=== PATIENT | male | born 1995 | race Native Hawaiian/Other Pacific Islander ===

== ENCOUNTER 2017-09-05 12:48 | Emergency (ER) | payer SELFPAY ==
[~2017-09-05] VITALS: Ht 188 cm; Wt 119.0 kg
[2017-09-05 12:58] VITALS: BP 157/74; PULSE 120; RESP 16; TEMP 99.6; O2SAT 94
[2017-09-05] MEDS ORDERED: PHENERGAN W CODEIN PO (13:33)
[2017-09-05] MEDS ORDERED: OSEL75 PO (13:33)
--- NOTE | 2017-09-05 13:33 | PD ---
HPI Chief Complaint: Cold / Flu Symptoms Time Seen by Provider: 13:29 Travel History International Travel<30 days: No Contact w/Intl Traveler<30days: No Traveled to known affect area: No History of Present Illness HPI 22-year-old male complains of headache, congestion, coughing, body ache, fever. Patient states the symptoms started yesterday. Patient states the cough is intermittent and nonproductive. Patient denies any nausea vomiting diarrhea. Patient states that the fever up to 100.5 at home. Patient states the headache is aching headache a few soda head. Patient denies any visual change. Patient denies any neck pain. Patient states that he has used congestion and mild sore throat. PFSH Past Medical History Medical History: Denies Significant Hx Diminished Hearing: No Influenza Vaccination: No ?: Not Past Surgical History Surgical History: No Previous Surgery Social History Alcohol Use: No Tobacco Use: No Allergies-Medications (Allergen,Severity, Reaction): Coded Allergies: No Known Allergies (Unverified , 09/05/17) Reported Meds & Prescriptions Reported Meds & Active Scripts Active No Active Prescriptions or Reported Medications Review of Systems General / Constitutional: Positive: Fever Eyes: No: Visual changes HENT: Positive: Headaches, Sore Throat, Congestion Cardiovascular: No: Chest Pain or Discomfort Respiratory: Positive: Cough, No: Shortness of Breath Gastrointestinal: No: Abdominal Pain Genitourinary: No: Dysuria Musculoskeletal: No: Pain Skin: No Rash Neurologic: No: Weakness Psychiatric: No: Depression Endocrine: No: Polydipsia Hematologic/Lymphatic: No: Easy Bruising Physical Exam Narrative GENERAL: Well-nourished, well-developed patient. SKIN: Focused skin assessment warm/dry. HEAD: Normocephalic. EYES: No scleral icterus. No injection or drainage. TM: Clear. Throat: Mild erythematous. NECK: Supple, trachea midline. No JVD or lymphadenopathy. No meningismus CARDIOVASCULAR: Regular rate and rhythm without murmurs, gallops, or rubs. RESPIRATORY: Breath sounds equal bilaterally. No accessory muscle use. GASTROINTESTINAL: Abdomen soft, non-tender, nondistended. MUSCULOSKELETAL: No cyanosis, or edema. BACK: Nontender without obvious deformity. No CVA tenderness. Neurologic exam normal. Data Data Last Documented VS Vital Signs Date Time Temp Pulse Resp B/P (MAP) Pulse Ox O2 Delivery O2 Flow Rate FiO2 2/11/18 12:58 99.6 120 16 157/74 (465) 94 MDM Medical Decision Making Medical Screen Exam Complete: Yes Emergency Medical Condition: Yes Differential Diagnosis Differential diagnosis including viral syndrome, otitis media, pharyngitis, bronchitis, pneumonia. Narrative Course 22-year-old male with headache, congestion, coughing, sore throat, body ache, fever. Diagnosis Primary Impression: Flu syndrome Patient Instructions: General Instructions Additional Instructions: Tamiflu as directed. Phenergan with codeine for cough. Tylenol for fever. Follow-up with personal physician. Return if worse. No flying for 1 week. Med/Other Pt SpecificInfo: Prescription(s) given Scripts [Phenergan W Codein] No Conflict Check 10 ML PO Q8HR for Cough, #120 Prov: Sergio Hogan MD 09/05/17 Oseltamivir (Tamiflu) 75 Mg Cap 75 MG PO BID for Mgmt Viral Infection, #10 CAP 0 Refills Prov: Sergio Hogan MD 09/05/17 Disposition: 01 DISCHARGE HOME Condition: Stable Sergio Hogan MD Sep 05, 2017 13:33
== END 2017-09-05 13:47 | disposition home or self-care (01) ==
LOC: PHEFT 12:48
DX: J10.89 Influenza due to other identified influenza virus with other manifestations (principal); R05 Cough; R50.9 Fever, unspecified; J02.9 Acute pharyngitis, unspecified
CPT/HCPCS: 99283